=== PATIENT | female | born 1960 | race Caucasian/White ===

== ENCOUNTER 2024-04-17 14:38 | Emergency (ER) | payer OTHER, SELFPAY ==
[2024-04-17 14:52] VITALS: BP 130/69; PULSE 77; RESP 17; TEMP 37.1; O2SAT 99; BMI 22.6
--- NOTE | 2024-04-17 15:30 | PC.NURSE ---
Pt talking to registration regarding having to leave. I went out and went over [facility] paperwork with patient. I asked her what changed her mind and she states I have a bigger emergency I have to deal with at home and I may take care of that and end up coming back. Pt calm during [facility].
== END 2024-04-17 15:33 | disposition home or self-care (01) ==
PROVIDERS: Emergency Provider Emergency Medicine
CPT/HCPCS: 99281